=== PATIENT | female | born 1955 | race Caucasian/White ===

== ENCOUNTER 2019-11-25 09:21 | Outpatient (CLI) | payer MEDICARE, MEDICAID ==
--- NOTE | 2019-11-25 16:15 | MRI ---
EXAM: MRI right shoulder PROVIDED CLINICAL HISTORY: Pain COMPARISON: None FINDINGS: There is full-thickness, fullwidth retracted tearing of the infraspinatus tendon with retraction to t he level of the glenohumeral joint. There is full-thickness, essentially full width retracted tearing of the supraspinatus tendon. A few far anterior supraspinatus tendon fibers are likely intact . There is high-grade partial-thickness undersurface tearing involving the cranial fibers of the subscapularis. The teres minor appears intact. There is tendinosis involving the intra-articular segment of the long head biceps tendon, which appea rs normally located within the bicipital groove. The amount of fluid within the glenohumeral joint appears physiologic. There is greater than physiolo gic subacromial subdeltoid bursal fluid on the basis of the rotator cuff tear. The glenoid labrum and glenohumeral articular cartilage are suboptimally evaluated in the absence of joint distention. N ondisplaced tearing involving the posterior-superior glenoid labrum cannot be excluded. Acromioclavicular joint osteoarthrosis is demonstrated. There is cranial migration of the humeral hea d. There is muscular volume loss and fatty infiltration involving infraspinatus greater than supraspinat us muscles. No focal concerning regional marrow or muscular signal abnormality is apparent. IMPRESSION: 1. Full-thickness tears of the supraspinatus and infraspinatus tendons as described. Associated muscu lar volume loss and fatty infiltration. 2. Partial thickness undersurface tearing involving the subscapularis. 3. Possible nondisplaced posterior-superior glenoid labral tear. 4. Acromioclavicular joint osteoarthrosis.
== END 2019-11-25 09:22 | disposition home or self-care (01) ==
LOC: SCSMRI 09:21
PROVIDERS: ATTEND Specialist
DX: S43.421D Sprain of right rotator cuff capsule, subsequent encounter (principal); S46.811A Strain of other muscles, fascia and tendons at shoulder and upper arm level, right arm, initial encounter; M75.121 Complete rotator cuff tear or rupture of right shoulder, not specified as traumatic; M19.011 Primary osteoarthritis, right shoulder; M62.89 Other specified disorders of muscle